=== PATIENT | male | born 1995 | race Caucasian/White ===

== ENCOUNTER 2022-03-22 23:21 | Emergency (ER) | payer OTHER ==
[2022-03-22 23:42] VITALS: BP 138/87
[2022-03-23] MEDS ORDERED: TETRACAINE 0.5% OPHTH SOLN 4 ML BTL (SINGLE DOSE ONLY) OU ONE
[2022-03-23] MEDS ORDERED: BSS 15 ML IR ONE
[2022-03-23] MEDS ORDERED: FLUORESCEIN (FLUOR-I-STRIPS) 1 MG STRP OU ONE
[2022-03-23] MEDS ORDERED: ERYTHROMYCIN OPHTH OINT 1 GM (SINGLE USE) TUBE OP STA (02:38)
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
[2022-03-23] MEDS ORDERED: BSS 15 ML IR PRN (03:00)
== END 2022-03-23 03:20 | disposition home or self-care (01) ==
LOC: ER 23:28
DX: T26.42XA Burn of left eye and adnexa, part unspecified, initial encounter (principal); T26.41XA Burn of right eye and adnexa, part unspecified, initial encounter; T15.02XA Foreign body in cornea, left eye, initial encounter; Z28.310 Unvaccinated for COVID-19
CPT/HCPCS: 99281